=== PATIENT | male | born 1955 | race Caucasian/White ===

== ENCOUNTER → 2021-06-05 11:35 | Outpatient (CLI) | payer MEDICARE, OTHER, SELFPAY ==
[2021-06-05 13:06] LABS: COVID19 -Nasal RAPID Negative (Negative)
== END ==
PROVIDERS: Visit Provider Physician Assistant
DX: Z20.822 Contact with and (suspected) exposure to COVID-19 (principal)
CPT/HCPCS: 87635; C9803

== ENCOUNTER 2021-06-06 08:23 | Day surgery (SDC) | payer MEDICARE, OTHER, SELFPAY ==
[2021-06-06] VITALS (7 sets, daily range): BP systolic 114–154; BP diastolic 65–81; PULSE 60–76; RESP 11–18; TEMP 36.2–36.6; O2SAT 97–99; BMI 33.2
--- NOTE | 2021-06-06 | PATH_ITS ---
[facility] Accession Number: [id number] . 01 Material submitted: . colon - TRANSVERSE COLON POLYP . 01 Clinical history: . DX COLONOSCOPY . 02 Diagnosis: Transverse Colon Polyp: Tubular adenoma. MRV 06/12/2021 1021 Local . 02 Electronically signed: . Alona Zarate MD, Pathologist NPI- [id number] . 01 Gross description: . Received in one formalin-filled container, labeled with the patient's name and labeled transverse colon polyp, are multiple fragments of mucoid material or debris. The specimen measures 0.5 x 0.2 x 0.1 cm in aggregate. Contents of container are filtered, wrapped, and totally submitted in one cassette. ([id number]) /[facility] 06/08/2021 0354 Local . 02 Pathologist provided ICD-10: K63.5 . 02 CPT . 479985 Performed at: 01 [facility] Cytology [address] [facility], [place], [place] [id number] MD Carson Sevilla MD Phone: [phone] Performed at: 02 [facility] [address] [place], [place] [id number] MD Lauren Braden MD Phone: [phone]
[2021-06-06] MEDS: SODIUM CHLORIDE 0.9% 1,000 ML 84 ML IV (08:56)
--- NOTE | 2021-06-06 09:20 | PM.HP.1 ---
History of Present Illness History of Present Illness Date Patient Seen: 06/06/21 Time Patient Seen: 09:20 Chief complaint: DX COLONOSCOPY Narrative: I reviewed my note from April 24 no significant changes. Patient History Medical History Asthma Colon polyps Hemochromatosis Hypertension Family & Social History Family History Other Colon cancer Social History: household members spouse Tobacco & Substance use: Smoking Status Former smoker alcohol intake never Substance Use Type marijuana Meds Home Medications and Allergies Home Medications Medication Instructions Recorded Confirmed Type azelastine 137 mcg (0.1 %) nasal 137 mcg INTRANASAL DAILY 06/05/21 06/06/21 History spray aerosol fluticasone 100 mcg-salmeterol 50 1 inh INHALATION DAILY 06/05/21 06/06/21 History mcg/dose blistr powdr for inhalation (Advair Diskus) lisinopril 10 mg tablet 10 mg PO DAILY 06/05/21 06/06/21 History rosuvastatin 20 mg tablet 20 mg PO DAILY 06/05/21 06/06/21 History Allergies Allergy/AdvReac Type Severity Reaction Status Date / Time latex Allergy Verified 06/05/21 14:52 Review of Systems Review of Systems ROS: Yes All systems reviewed with the patient and are negative except as otherwise documented Exam Vital Signs (past 8 hours): - 06/06/21 08:43 Temperature 97.3 F L Pulse Rate 64 Respiratory Rate 18 Blood Pressure 122/70 Pulse Oximetry 97 Oxygen Delivery Method Room Air Const General: cooperative and comfortable Orientation: alert HENNV Head: normocephalic Ears: external ears normal Nose: external nose normal Face and sinus: normal facial exam Mouth: oral mucosae normal Eyes General: appearance normal, both eyes and all related structures Neck Neck: normal visual inspection Chest Chest: normal inspection of the chest Resp Effort & Inspection: normal respiratory effort Cardio Rate: regular rate GI Inspection: normal to inspection Skin General: no rashes or lesions noted and No jaundice Neuro General: patient alert and moves all extremities Cognition: normal cognition Speech: speech normal Extrem General: no pedal edema Psych Appearance: grossly normal Assessment & Plan Assessment & Plan narrative: 65-year-old male with a personal history of colon polyps. Colonoscopy is pursued today. Time Spent With Patient Critical Care time: I spent a total of [] minutes of critical care time on this patient's care today; this time is exclusive of procedural time.
--- NOTE | 2021-06-06 09:22 | PM.PREOP ---
Pre-operative Note COVID-19 COVID-19 status: Negative Result date/Date tested (Pos, Neg/Pending): 06/05/21 Interval Note History & Physical reviewed/Exam performed by Physician: Yes Changes to H&P: No ASA Class (for procedural sedation): II
--- NOTE | 2021-06-06 10:21 | P.OP.COLON_ITS ---
Operative Date/Time/Diagnoses Date of procedure: 06/06/21 Time of procedure: 10:21 Pre-op diagnosis: Polyp history Post-op diagnosis: same Procedure & Clinicians Study performed: Colonoscopy with cold snare polypectomy and biopsy Same procedure as scheduled: Yes Indications: Colon polyp history Surgeon: Dominguez Boss Procedure Notes SCOAP/Timeout: Done Procedure in detail: After the risks and benefits were explained, written and verbal informed consent was obtained. The patient was brought into the procedure room and placed into the left lateral decubitus position. Please see nurse western philosophy professor notes for sedation details. Digital rectal examination was accomplished. The scope was introduced into the patient and advanced under direct visualization to the cecum as identified by the appendiceal orifice and ileocecal valve. The scope was slowly withdrawn to carefully examine the mucosa for any defects or lesions. Comprehensive imaging was accomplished throughout the rectum including the dentate line. The colon was decompressed, the scope was then removed from the patient who tolerated the procedure well. Bowel prep originally fair but with copious irrigation and suction this was rendered adequate Adult colonoscope Scope withdrawal time: 9 minutes Sedation minutes: 16 Complications: none Impression: Some scant diverticula were noted in the sigmoid. The transverse there was a diminutive 5 mm polyp removed with cold snare. There was a small fragment that seem to remain after the snare and this was addressed with cold forceps. No additional pathology was appreciated throughout. Endoscopic diagnosis 1. Diminutive colon polyp 2. Diverticulosis Post-procedure Recommendations: Colonoscopy in 5 years Plan for aftercare: 1. Await histopathology 2. Repeat colonoscopy 5 years Disposition: PACU
== END 2021-06-06 10:59 | disposition home or self-care (01) ==
LOC: ENDO 08:26
PROVIDERS: PCP Internal Medicine; Referring Provider Internal Medicine Gastroenterology; Visit Provider Internal Medicine Gastroenterology
PROC: 0DJD8ZZ Inspection of Lower Intestinal Tract, Via Natural or Artificial Opening Endoscopic (ICD-10-PCS; CPT 45378; principal; 2021-06-06 10:00)
DX: Z12.11 Encounter for screening for malignant neoplasm of colon (principal); Z86.010 Personal history of colon polyps; J45.909 Unspecified asthma, uncomplicated; I10 Essential (primary) hypertension; E83.119 Hemochromatosis, unspecified; K57.30 Diverticulosis of large intestine without perforation or abscess without bleeding; D12.3 Benign neoplasm of transverse colon
CPT/HCPCS: 45385; 45380; J2704

== ENCOUNTER → 2022-03-22 13:39 | Outpatient (CLI) | payer MEDICARE, OTHER, SELFPAY ==
--- NOTE | 2022-03-22 13:42 | DI.US.S_ITS ---
PROCEDURE: US CAROTID DOPPLER BI INDICATIONS: S/P CAROTID ENDARTERECTOMY. RIGHT 03/08. LEFT 12/06. TECHNIQUE: Color and pulse Doppler interrogation was performed of both carotid systems, with image documentation and velocity measurements. COMPARISON: None. FINDINGS: Stenosis calculations are based on SRU (Society of Radiologists in Ultrasound) criteria. Right side: Brachial blood pressure: 120/62 mm Hg. Common carotid artery peak systolic velocity: 127 cm/sec. Internal carotid artery peak systolic velocity: 157 cm/sec. Internal carotid artery end diastolic velocity: 35 cm/sec. External carotid artery peak systolic velocity: 119 cm/sec. ICA/CCA peak systolic ratio: 1.2 . Rocha scale imaging description: Mild plaque at the bifurcation Percent internal carotid artery stenosis: 50-69% . Vertebral artery: Flow direction is antegrade. Left side: Brachial blood pressure: 122/70 mm Hg. Common carotid artery peak systolic velocity: 123 cm/sec. Internal carotid artery peak systolic velocity: 150 cm/sec. Internal carotid artery end diastolic velocity: 39 cm/sec. External carotid artery peak systolic velocity: 380 cm/sec. ICA/CCA peak systolic ratio: 1.2 . Rocha scale imaging description: Moderate plaque at the bifurcation Percent internal carotid artery stenosis: 50-69%. Vertebral artery: Flow direction is antegrade. There is decreased velocity within the right vertebral artery measuring 39 centimeters/second compared to left at 105 centimeters/second. IMPRESSION: Internal carotid artery is demonstrating 50-69% stenosis. Markedly increased velocity within the right external carotid artery suspicious for stenosis. Asymmetric vertebral artery velocities. Steal cannot be excluded. If this is of concern, further evaluation is recommended. Dictated by: Jeannie Farnsworth M.D. on 03/23/2022 at 10:51 Approved by: Jeannie Farnsworth M.D. on 03/23/2022 at 10:53
== END ==
PROVIDERS: PCP Internal Medicine; Referring Provider Neurological Surgery; Visit Provider Neurological Surgery
DX: I65.23 Occlusion and stenosis of bilateral carotid arteries (principal); Z98.890 Other specified postprocedural states
CPT/HCPCS: 93880